=== PATIENT | male | born 1980 | race Two or more races ===

== ENCOUNTER 2023-01-14 12:58 | Emergency (ER) | payer OTHER ==
[~2023-01-14] VITALS: Ht 182.9 cm; Wt 83.9 kg
== END 2023-01-14 19:43 | disposition home or self-care (01) ==
LOC: ER 12:58
DX: S29.8XXA Other specified injuries of thorax, initial encounter (principal); V48.0XXA Car driver injured in noncollision transport accident in nontraffic accident, initial encounter; Y93.89 Activity, other specified; Y92.411 Interstate highway as the place of occurrence of the external cause